=== PATIENT | male | born 1975 | race Caucasian/White ===

== ENCOUNTER 2024-12-03 14:40 | Outpatient (AMB) | payer OTHER, SELFPAY ==
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
[2024-12-03 14:50] VITALS: BP 126/74; PULSE 72; O2SAT 97; BMI 27.4
== END 2024-12-03 15:47 | disposition home or self-care (01) ==
LOC: HO.HSMS 14:41
PROVIDERS: PCP Family Medicine; Visit Provider Physician Assistant Medical
DX: G47.19 Other hypersomnia (principal); G47.10 Hypersomnia, unspecified; R53.82 Chronic fatigue, unspecified
CPT/HCPCS: 99204

== ENCOUNTER → 2025-01-02 20:30 | Outpatient (REF) | payer OTHER, SELFPAY | LOC: HO.SL 20:30 | PROVIDERS: PCP Family Medicine; Visit Provider Physician Assistant Medical | DX: G47.19 Other hypersomnia (principal) | CPT/HCPCS: 95810 ==

== ENCOUNTER → 2025-01-02 21:38 | Outpatient (BNV) | payer OTHER, SELFPAY | PROVIDERS: PCP Family Medicine; Visit Provider Psychiatry & Neurology Neurology | DX: G47.10 Hypersomnia, unspecified (principal) | CPT/HCPCS: 95810 ==

== ENCOUNTER 2025-03-05 09:58 | Outpatient (AMB) | payer OTHER, SELFPAY ==
[2025-03-05 10:13] VITALS: BP 126/74; PULSE 66; O2SAT 97; BMI 28.1
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
== END 2025-03-05 10:35 | disposition home or self-care (01) ==
LOC: HO.HSMS 09:58
PROVIDERS: PCP Family Medicine; Visit Provider Physician Assistant Medical
DX: G47.19 Other hypersomnia (principal); G47.10 Hypersomnia, unspecified; R53.82 Chronic fatigue, unspecified
CPT/HCPCS: 99214